=== PATIENT | female | born 1955 | race American Indian/Alaskan Native ===

== ENCOUNTER 2017-07-02 08:39 | Outpatient (CLI) | payer OTHER | END 2017-07-02 08:40 | disposition home or self-care (01) | LOC: LABHHL 08:39 | PROVIDERS: ATTEND Surgery | DX: D24.1 Benign neoplasm of right breast (principal) | CPT/HCPCS: 88305 ==

== ENCOUNTER 2021-07-04 09:27 | Outpatient (CLI) | payer MEDICARE ==
--- NOTE | 2021-07-04 10:34 | Mammography Report ---
BILATERAL DIGITAL SCREENING MAMMOGRAM WITH CAD HISTORY: Screening mammogram. TECHNIQUE: Routine digital mammographic imaging performed. This examination was interpreted with jose j acevedo benefit of Computer-aided Detection analysis. COMPARISON: 06/30/2020, 06/25/2019, 05/29/2018. FINDINGS: Breast Density: scattered fibroglandular appearance of the breast tissue. Digital CC and MLO views demonstrate no mammographic evidence of malignancy. Scattered coarse-appear ing benign calcifications in both breasts show no significant change. Biopsy marker in the right uppe r outer breast is again noted. IMPRESSION: No mammographic evidence of malignancy. If the clinical examination remains stable, recommend bilate ral mammogram in approximately one year. BIRADS 2: Benign Finding(s). FURTHER INFORMATION: According to the [employer], yearly mammograms are recommend ed starting at age 40 and continuing as long as a woman is in good health. Clinical Breast Exams shou ld be part of a periodic health exam-about every 3 years for women in their 20s and 30s and every yea r for women 40 and over. Breast self exam is an option for women starting in their 20s. Any breast ch supa noted on a breast self exam should be reported promptly to the patient's healthcare provider. Br east MRI is recommended for women with an approximately 20-25% or greater lifetime risk of breast can cer, including women with a strong family history of breast or ovarian cancer and women who have been treated for Hodgkin's disease. A negative Mammography report should not discourage follow up or biopsy of a clinically significant f inding and/or abnormality. Dense breast tissue may obscure small neoplasms. The patient will be entered into a reminder system with a target due date for the next screening mamm ogram. Signer Name: Merlin Heard MD Signed: 07/04/2021 10:30 AM Workstation Name: [id number]
== END 2021-07-04 09:28 | disposition home or self-care (01) ==
LOC: SPVWC 09:27
PROVIDERS: ATTEND Surgery
DX: Z12.31 Encounter for screening mammogram for malignant neoplasm of breast (principal)
CPT/HCPCS: 77067